=== PATIENT | female | born 1950 | race Caucasian/White ===

== ENCOUNTER 2020-07-03 15:49 | Emergency (ER) | payer OTHER ==
[~2020-07-03] VITALS: Ht 154.9 cm; Wt 72.6 kg
[~2020-07-03 15:49] MED LIST: ASPIR 8181 MG PO; LASIX 20 MG TAB20 MG PO; MEDROLDOSEPACK PO; MELOXICAM7.5 MG PO; VITAMIN B-12500 MCG PO; VITAMIN D2000 UNIT PO; VITAMIN E400 UNIT PO
[2020-07-03] MEDS ORDERED: ULTRAM 50MG TAB50 MG PO (17:57)
[2020-07-03] MEDS ORDERED: DOXYCYCLINE 10100 MG PO (18:11)
[2020-07-03 18:47] VITALS: BP 129/78
== END 2020-07-03 18:51 | disposition home or self-care (01) ==
LOC: ER 15:49
DX: S02.2XXA Fracture of nasal bones, initial encounter for closed fracture (principal); S60.416A Abrasion of right little finger, initial encounter; E78.5 Hyperlipidemia, unspecified; Z79.82 Long term (current) use of aspirin; Z79.899 Other long term (current) drug therapy; Z88.0 Allergy status to penicillin; Z88.2 Allergy status to sulfonamides; Z88.5 Allergy status to narcotic agent; W01.198A Fall on same level from slipping, tripping and stumbling with subsequent striking against other object, initial encounter; Y93.89 Activity, other specified; Y92.89 Other specified places as the place of occurrence of the external cause; Y99.8 Other external cause status